=== PATIENT | male | born 1990 | race Two or more races ===

== ENCOUNTER 2020-03-19 14:55 | Emergency (ER) | payer MEDICAID, OTHER ==
[~2020-03-19] VITALS: Ht 170.2 cm; Wt 68.0 kg
--- NOTE | 2020-03-19 15:04 | NUR ---
[address]IB [facility] [address],FOUND UNCONSCIOUS W/ PINPOINT PUPILS, WOKE UP AFTER 8 MG NARCAN NASALLY AND 2 MG IVP WERE GIVEN BASEBALL HAND SEWER. TO ER BED 13, HOOKED TO MONITOR, CHANGED TO HOSP GOWN, WARM BLANKET PROVIDED. PATIENT AAO x 3. BREATHING EVEN AND UNLABORED. AWAITING MD HOLT.
--- NOTE | 2020-03-19 15:11 | NUR ---
SEEN BY DR OLMEDO.
[2020-03-19] MEDS ORDERED: NALO4SPR NS (17:37)
[2020-03-19 17:51] VITALS: BP 119/68
== END 2020-03-19 17:51 | disposition home or self-care (01) ==
LOC: ER 15:07
DX: T40.411A Poisoning by fentanyl or fentanyl analogs, accidental (unintentional), initial encounter (principal); F10.10 Alcohol abuse, uncomplicated; F17.200 Nicotine dependence, unspecified, uncomplicated; Y90.9 Presence of alcohol in blood, level not specified; Z60.2 Problems related to living alone; Z79.899 Other long term (current) drug therapy; Y92.89 Other specified places as the place of occurrence of the external cause